=== PATIENT | female | born 1965 | race Caucasian/White ===

== ENCOUNTER → 2016-10-05 | Outpatient (REF) | payer BC ==
[2016-10-05 19:57] LABS: MEAN CORPUSCULAR HEMOGLOBIN 30.8 pg (27.0-33.0); MEAN CORPUSCULAR HGB CONC 33.4 g/dl (32.0-36.5); MEAN CORPUSCULAR VOLUME 92.4 fl (80.0-96.0); RED CELL DISTRIBUTION WIDTH 12.4 % (11.5-14.5); WHITE BLOOD COUNT 6.7 K/mm3 (4.0-10.0)
[2016-10-05 20:15] LABS: ALBUMIN 4.2 GM/DL (3.2-5.2); ALBUMIN/GLOBULIN RATIO 1.27 (1.00-1.93); ALKALINE PHOSPHATASE 121 U/L (45-117); ALT/SGPT 18 U/L (12-78); ANION GAP 8 MEQ/L (8-16); AST/SGOT 19 U/L (15-37); BILIRUBIN,TOTAL 0.6 MG/DL (0.2-1.0); BLOOD UREA NITROGEN 17 MG/DL (7-18); CALCIUM LEVEL 9.5 MG/DL (8.5-10.1); CARBON DIOXIDE LEVEL 27 MEQ/L (21-32); CHLORIDE LEVEL 107 MEQ/L (98-107); CREATININE FOR GFR 0.76 MG/DL (0.55-1.02); FREE T4 1.18 NG/DL (0.76-1.46); GLOMERULAR FILTRATION RATE > 60.0 (>51); GLUCOSE, FASTING 84 MG/DL (70-105); POTASSIUM SERUM 4.3 MEQ/L (3.5-5.1); SODIUM LEVEL 142 MEQ/L (136-145); TOTAL PROTEIN 7.5 GM/DL (6.4-8.2)
== END ==
LOC: M SFHCADAM 15:21
PROVIDERS: ATTEND Physician Assistant
DX: R42 Dizziness and giddiness (principal); E05.90 Thyrotoxicosis, unspecified without thyrotoxic crisis or storm; R11.10 Vomiting, unspecified

== ENCOUNTER 2016-11-23 09:45 | Emergency (ER) | payer BC ==
[~2016-11-23] VITALS: Ht 165.1 cm; Wt 66.7 kg
[2016-11-23 09:45] VITALS: BP 143/69
[2016-11-23] MEDS ORDERED: PRED20TA PO (10:34)
[2016-11-23] MEDS ORDERED: BACT800T5 PO (10:34)
[2016-11-23] MEDS ORDERED: RANI15TA PO (10:34)
[2016-11-23] MEDS ORDERED: NORC1TAB4 PO (10:34)
== END 2016-11-23 10:42 | disposition home or self-care (01) ==
LOC: M ED 10:12
DX: L02.412 Cutaneous abscess of left axilla (principal); L30.9 Dermatitis, unspecified; F17.200 Nicotine dependence, unspecified, uncomplicated

== ENCOUNTER 2018-01-31 13:02 | Emergency (ER) | payer OTHER, BC ==
[2018-01-31] MEDS: IBUPROFEN 600 MG TAB PO (15:00)
== END 2018-01-31 15:21 | disposition home or self-care (01) ==
LOC: M ED 13:02
DX: S83.411A Sprain of medial collateral ligament of right knee, initial encounter (principal); X50.9XXA Other and unspecified overexertion or strenuous movements or postures, initial encounter; Y92.59 Other trade areas as the place of occurrence of the external cause; Y99.0 Civilian activity done for income or pay; E03.9 Hypothyroidism, unspecified; F17.210 Nicotine dependence, cigarettes, uncomplicated
CPT/HCPCS: 73564

== ENCOUNTER → 2019-05-22 | Outpatient (REF) | payer OTHER, BC ==
[~2019-05-22] MED LIST: BACT800T5 PO; NORC1TAB7 PO; PRED20TA PO; RANI15TA PO
== END ==
LOC: M LAB REF 12:23
PROVIDERS: ATTEND Physician Assistant
DX: L02.811 Cutaneous abscess of head [any part, except face] (principal)

== ENCOUNTER → 2023-08-21 | Outpatient (REF) ==
[2023-08-22 05:13] LABS: HERPES ZOSTER, VARICELLA IgG 2705 index (Immune >165); RUBEOLA IgG ANTIBODY <13.5 AU/mL (Immune >16.4)
== END ==
LOC: M LAB 10:24
PROVIDERS: ATTEND Nurse Practitioner Adult Health
DX: Z02.89 Encounter for other administrative examinations (principal)